=== PATIENT | female | born 1980 | race Caucasian/White ===

== ENCOUNTER 2018-09-13 15:34 | Outpatient (CLI) | payer MEDICAID | END 2018-09-13 15:35 | disposition critical access hospital (66) | LOC: EMS 15:34 | PROVIDERS: ATTEND Surgery | DX: T50.992A Poisoning by other drugs, medicaments and biological substances, intentional self-harm, initial encounter (principal) | CPT/HCPCS: A0425; A0427; A0999 ==

== ENCOUNTER 2018-09-13 15:54 | Inpatient (IN) | payer MEDICAID ==
[2018-09-13] MEDS ORDERED: SODIUM CHLORIDE 0.9% 1,000 ML IV ONE ×2 (16:03→16:38)
[2018-09-13] MEDS ORDERED: NALOXONE 2 MG in SODIUM CHLORIDE 0.9% 495 ML IVP STA (16:14)
--- NOTE | 2018-09-13 16:16 | ED Physician Documentation ---
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 Review of Systems Ten Systems: 10 systems reviewed and negative Constitutional: denies: Fever, Chills Ears: denies: Ear pain Nose: denies: Rhinorrhea / runny nose, Congestion Throat: denies: Sore throat Cardiac: denies: Chest pain / pressure Respiratory: denies: Cough GI: denies: Vomiting, Diarrhea Skin: denies: Rash Musculoskeletal: reports: Back pain (chronic). denies: Neck pain Neurologic: denies: Focal weakness, Numbness Psychiatric: reports: Depressed, Suicidal PD PAST MEDICAL HISTORY - Past Medical History Past Medical History: Yes Cardiovascular: High cholesterol Psych: Depression, Anxiety Other Past Medical History: "spinal cord condition" - Present Medications Home Medications: Ambulatory Orders Medication Instructions Recorded Confirmed Atorvastatin [Lipitor] 10 mg 09/13/18 Escitalopram [Lexapro] 10 mg 09/13/18 Gabapentin 300 mg PO 09/13/18 Oxybutynin [Ditropan] 5 09/13/18 QUEtiapine [SEROquel] 50 mg PO QPM 09/13/18 09/13/18 clonazePAM [Clonazepam] 1 09/13/18 - Allergies Allergies/Adverse Reactions: Allergies Allergy/AdvReac Type Severity Reaction Status Date / Time No Known Drug Allergies Allergy Verified 09/13/18 16:01 - Living Situation Living Arrangement: reports: At home - Social History Does the pt smoke?: No Does the pt have substance abuse?: No - Family History Family history: reports: Non contributory PD ED PE NORMAL - Vitals Vital signs reviewed: Yes - General General: No acute distress, Well developed/nourished, Other (drowsy, but arousable) - HEENT HEENT: Moist mucous membranes, Other (pinpoint pupils B) - Cardiac Cardiac: RRR, Strong equal pulses - Respiratory Respiratory: No respiratory distress, Clear bilaterally - Abdomen Abdomen: Soft, Non tender - Extremities Extremities: No deformity, No calf tenderness / cord - Neuro Neuro: Other (drowsy) Results - Vitals Vitals: Vital Signs - 24 hr 09/13/18 09/13/18 09/13/18 15:55 16:34 16:53 Temperature 36.9 C Heart Rate 85 73 75 Respiratory 6 L 11 L Rate Blood Pressure 108/74 88/48 L 90/47 L O2 Saturation 94 100 99 09/13/18 17:02 Temperature Heart Rate 70 Respiratory 9 L Rate Blood Pressure 101/65 O2 Saturation 99 Oxygen O2 Source Nasal cannula - EKG (time done) 1610 Rate: Rate (enter#) (79) Rhythm: NSR Bliss: Normal Intervals: Normal GA QRS: Normal Ischemia: Normal ST segments - Labs Labs: Laboratory Tests 09/13/18 09/13/18 09/13/18 16:15 16:15 16:15 WBC 8.0 RBC 4.07 L Hgb 12.0 Hct 37.4 MCV 91.9 MCH 29.4 MCHC 32.0 RDW 14.0 Plt Count 247 MPV 8.0 Neut # (Auto) 5.3 Lymph # (Auto) 2.0 [place] # (Auto) 0.7 Eos # (Auto) 0.0 Baso # (Auto) 0.0 Absolute Nucleated RBC 0.00 Nucleated RBC % 0.0 Sodium 137 Potassium 4.1 Chloride 108 Carbon Dioxide 25 Anion Gap 4.0 L BUN 13 Creatinine 0.7 Estimated GFR (MDRD) 94 Glucose 94 Calcium 7.9 L Total Bilirubin 0.6 AST 16 ALT 12 Alkaline Phosphatase 62 Total Protein 5.9 L Albumin 3.2 Globulin 2.7 Albumin/Globulin Ratio 1.2 Lipase 21 L TSH 2.47 Urine Color Urine Clarity Urine pH Ur Specific [place] Urine Protein Urine Glucose (UA) Urine Ketones Urine Occult Blood Urine Nitrite Urine Bilirubin Urine Urobilinogen Ur Leukocyte Esterase Urine RBC Urine WBC Ur Squamous Epith Cells Urine Bacteria Ur Microscopic Review Urine Culture Comments Urine HCG, Qual Salicylates < 6.0 Urine Opiates Screen Ur Oxycodone Screen Urine Methadone Screen Ur Propoxyphene Screen Acetaminophen 117 H* Ur Barbiturates Screen Ur Tricyclics Screen Ur Phencyclidine Scrn Ur Amphetamine Screen U Methamphetamines Scrn U Benzodiazepines Scrn Urine Cocaine Screen U Cannabinoids Screen Ethyl Alcohol < 5.0 09/13/18 09/13/18 16:24 16:24 WBC RBC Hgb Hct MCV MCH MCHC RDW Plt Count MPV Neut # (Auto) Lymph # (Auto) [place] # (Auto) Eos # (Auto) Baso # (Auto) Absolute Nucleated RBC Nucleated RBC % Sodium Potassium Chloride Carbon Dioxide Anion Gap BUN Creatinine Estimated GFR (MDRD) Glucose Calcium Total Bilirubin AST ALT Alkaline Phosphatase Total Protein Albumin Globulin Albumin/Globulin Ratio Lipase TSH Urine Color DARK YELLOW Urine Clarity CLOUDY Urine pH 7.0 Ur Specific [place] 1.025 Urine Protein 100 H Urine Glucose (UA) NEGATIVE Urine Ketones NEGATIVE Urine Occult Blood TRACE-INTA Urine Nitrite NEGATIVE Urine Bilirubin NEGATIVE Urine Urobilinogen 0.2 (NORMAL) Ur Leukocyte Esterase SMALL H Urine RBC 6-10 H Urine WBC >25 H Ur Squamous Epith Cells RARE Squamous Urine Bacteria Many H Ur Microscopic Review INDICATED Urine Culture Comments INDICATED Urine HCG, Qual NEGATIVE Salicylates Urine Opiates Screen POSITIVE H Ur Oxycodone Screen POSITIVE H Urine Methadone Screen NEGATIVE Ur Propoxyphene Screen NEGATIVE Acetaminophen Ur Barbiturates Screen NEGATIVE Ur Tricyclics Screen POSITIVE H Ur Phencyclidine Scrn NEGATIVE Ur Amphetamine Screen NEGATIVE U Methamphetamines Scrn NEGATIVE U Benzodiazepines Scrn NEGATIVE Urine Cocaine Screen NEGATIVE U Cannabinoids Screen POSITIVE H Ethyl Alcohol PD MEDICAL DECISION MAKING - ED course Complexity details: reviewed results, re-evaluated patient, considered differential, d/w patient, d/w family, d/w retail sales consultant ED course: 37-year-old female status post intentional overdose of oxycodone and Tylenol. Given the unclear time frame of when she actually ingested the pills (patient thinks 5.5hrs PHARMACEUTICAL SALESPERSON, family thinks 2-3), acetylcysteine was empirically given. She was also started on a Narcan drip to maintain her respiratory drive. Discussed the case with poison control who recommended the above. We will admit the patient to the ICU for further care and monitoring. Discussed with Dr. Diaz, hospitalist who accepts. This document was made in part using voice recognition software. While efforts are made to proofread this document, sound alike and grammatical errors may occur. - Critical Care Time(min): 40 Time Includes: Direct patient care, Document care, Coordinate care, See progress note Data interpretation: See progress note Procedures included in critical care time: See progress note Procedures excluded from critical care time: See progress note Departure - Departure Disposition: 66 [facility] DC/Xfer Clinical Impression: Suicide attempt Acetaminophen overdose Qualifiers: Encounter type: initial encounter Injury intent: intentional self-harm Qualified Code(s): T39.1X2A - Poisoning by 4-Aminophenol derivatives, intentional self-harm, initial encounter Narcotic overdose Qualifiers: Encounter type: initial encounter Injury intent: intentional self-harm Qualified Code(s): T40.602A - Poisoning by unspecified narcotics, intentional self-harm, initial encounter UTI (urinary tract infection) Qualifiers: Urinary tract infection type: acute cystitis Hematuria presence: without hematuria Qualified Code(s): N30.00 - Acute cystitis without hematuria Condition: Stable
[2018-09-13] MEDS ORDERED: ACETYLCYSTEINE IV STA (16:22)
[2018-09-13] MEDS ORDERED: DEXTROSE 5% IV STA (16:22)
[2018-09-13] MEDS ORDERED: ACETYLCYSTEINE 5,000 MG in DEXTROSE 5% 1,000 ML IV ONE (16:23)
[2018-09-13] MEDS ORDERED: ACETYLCYSTEINE IV ONE (16:23)
[2018-09-13] MEDS ORDERED: DEXTROSE 5% IV ONE (16:23)
[2018-09-13 16:26] LABS: BASOPHILS % (AUTO) 0.2 %; EOSINOPHILS % (AUTO) 0.4 %; MEAN CORPUSCULAR HEMOGLOBIN 29.4 pg (27.0-31.0); MEAN CORPUSCULAR VOLUME 91.9 fL (81.0-99.0); MONOCYTES # (AUTO) 0.7 10^3/uL (0.0-1.0); MONOCYTES % (AUTO) 8.2 %; NEUTROPHILS # (AUTO) 5.3 10^3/uL (1.5-6.6); NEUTROPHILS % (AUTO) 66.2 %; PLT - PLATELET COUNT 247 10^3/uL (130-450); RED BLOOD COUNT 4.07 10^6/uL (4.20-5.40)
[2018-09-13 16:32] LABS: MUDS CUTOFF CONCENTRATIONS CUTOFF CONC BELOW:
[2018-09-13 16:34] LABS: BILIRUBIN,URINE NEGATIVE (NEGATIVE); GLUCOSE, URINE (UA) NEGATIVE (NEGATIVE); KETONES,URINE (UA) NEGATIVE (NEGATIVE); LEUKOCYTE ESTERASE, URINE SMALL (NEGATIVE); NITRITE,URINE NEGATIVE (NEGATIVE); OCCULT BLOOD,URINE TRACE-INTA (NEGATIVE); PROTEIN,URINE 100 mg/dL (NEGATIVE); UROBILINOGEN,URINE 0.2 (NORMAL) E.U./dL (NORMAL)
[2018-09-13 16:38] LABS: ALBUMIN 3.2 g/dL (3.2-5.5); ALBUMIN/GLOBULIN RATIO 1.2 (1.0-2.2); ALKALINE PHOSPHATASE 62 IU/L (42-121); ALT ALANINE AMINOTRANSFERASE 12 IU/L (10-60); AST ASPARTATE AMINOTRANSFERASE 16 IU/L (10-42); BILIRUBIN,TOTAL 0.6 mg/dL (0.2-1.0); BUN - BLOOD UREA NITROGEN 13 mg/dL (6-20); CALCIUM 7.9 mg/dL (8.5-10.3); CARBON DIOXIDE - CO2 25 mmol/L (21-32); CHLORIDE 108 mmol/L (101-111); CREATININE 0.7 mg/dL (0.4-1.0); GFR - MDRD 94 (>89); GLUCOSE 94 mg/dL (70-100); LIPASE 21 U/L (22-51); SODIUM 137 mmol/L (135-145); TOTAL PROTEIN 5.9 g/dL (6.7-8.2)
[2018-09-13] MEDS ORDERED: NALOXONE 0.4 MG/ML VIAL IVP STA (16:38)
[2018-09-13 16:47] LABS: CLARITY,URINE CLOUDY (CLEAR); HCG UR QUAL NEGATIVE
[2018-09-13 16:48] LABS: BACTERIA,URINE Many /HPF (None Seen); SQUAMOUS EPITHELIAL CELL,UR RARE Squamous (<= Few)
[2018-09-13 16:49] LABS: AMPHETAMINE SCREEN,URINE NEGATIVE (NEGATIVE); BENZODIAZEPINES SCREEN, URINE NEGATIVE (NEGATIVE); COCAINE SCREEN URINE NEGATIVE (NEGATIVE); METHADONE SCREEN, URINE NEGATIVE (NEGATIVE); METHAMPHETAMINES SCREEN, URINE NEGATIVE (NEGATIVE); OPIATE SCREEN, URINE POSITIVE (NEGATIVE); OXYCODONE SCREEN, URINE POSITIVE (NEGATIVE); PROPOXYPHENE SCREEN, URINE NEGATIVE (NEGATIVE); TRICYCLIC ANTIDEPRESSANT,URINE POSITIVE (NEGATIVE)
[2018-09-13 16:49] LABS: ACETAMINOPHEN 117 ug/mL (10-30)
[2018-09-13] MEDS ORDERED: cefTRIAXone 1 GM VIAL IVP STA (16:49)
[2018-09-13 16:50] LABS: SALICYLATE < 6.0 mg/dL
[2018-09-13] MEDS ORDERED: NALOXONE 0.4 MG/ML VIAL ONE (18:44)
[2018-09-13] MEDS ORDERED: D5NS W/20 MEQ KCL 1,000 ML IV STA (18:44)
[2018-09-13] MEDS ORDERED: SODIUM CHLORIDE 0.9% 500 ML IV ONE ×3 (18:45→23:52)
[2018-09-13] MEDS ORDERED: ACETYLCYSTEINE IV SCH (19:00)
[2018-09-13] MEDS ORDERED: DEXTROSE 5% IV SCH (19:00)
[2018-09-13] MEDS: NALOXONE 2 MG in SODIUM CHLORIDE 0.9% 495 ML IVP SCH ×2 (19:00→23:55)
[2018-09-13] MEDS: ceFAZolin 1 GM in SODIUM CHLORIDE 0.9% MINIBAG 100 ML IV SCH (19:58)
--- NOTE | 2018-09-13 20:43 | HISTORY & PHYSICAL EXAMINATION ---
DATE OF SERVICE: 09/13/2018 Physician: Josephine Diaz MD HISTORY OF PRESENT ILLNESS: This is a 37-year-old white female with history of depression on several psychiatric medications, she moved here from [place] was two teenage children in May of this year to be closer to HER OWN brother and sister, since she is . She recently had a brake up with her fiancee and has been crying and this morning attempted suicide with admitted ingestion of 70 tablets of Percocet and Tylenol. She noted that she "could not move" and called for help and was brought to the emergency room in an obtunded condition. She was started on a Narcan drip and Poison Control was called. Apparently, the ingestion was about 4 hours before this presentation and she did not receive any charcoal. Poison Control also advised that she be put on the Narcan drip as well as an Acetylcysteine drip, even before the Acetominophen level was available. She is now lethargic, but is communicating with somewhat slurred speech and also unable to focus with her eyes, but is comfortable and in no distress on the two iv drips. PAST MEDICAL HISTORY: Depression. She has never had a suicide attempt before. SOCIAL HISTORY: No alcohol use, no smoking, (+) drug use. MEDICATIONS 1. Seroquel 50 mg every night. 2. Klonopin, unknown dose. 3. Ditropan, unknown dose. 4. Gabapentin 300 mg, unknown frequency. 5. Lexapro 10 mg daily. 6. Lipitor 10 mg daily. ALLERGIES: NONE. FAMILY HISTORY: No inherited diseases. REVIEW OF SYSTEMS: A comprehensive review of systems was performed and the pertinent positives are in the HPI, the rest are negative. PHYSICAL EXAMINATION GENERAL: Somewhat lethargic white female who is in no distress. VITAL SIGNS: Blood pressure 90/56, heart rate 65-80 in sinus rhythm, afebrile, room air saturation 98%. HEENT: Reveals unequal pupils, but both are reactive to light. She is unable to focus equally with extraocular movements. Her oral mucosa is dry. NECK: Without JVD. No carotid bruits. LUNGS: Clear. HEART: Sounds normal. ABDOMEN: Soft, nontender. Normal bowel sounds, nontender. EXTREMITIES: No edema. NEUROLOGIC: As described above. DATA: EKG: Normal sinus rhythm, early repolarization, which is a normal variant. No chest x-ray was done. LABORATORY DATA: Normal electrolytes. Normal BUN and creatinine. Normal liver tests and bilirubin and alkaline phosphatase. Normal lipase. TSH normal at 2.47. White blood count 8, hemoglobin 12, MCV normal, platelet count 246. Urinalysis showed high protein, small leukocyte esterase, many white blood cells and many bacteria. Urine toxicology showed acetaminophen level of 117 (therapeutic here is 10-30) also positive in the urine are opiates, oxycodone, tricyclics and cannabinoid. There is no alcohol or salicylates noted. IMPRESSION/DIAGNOSES 1. Suicide attempt with drug ingestion. 2. Acetaminophen overdose. 3. Narcotic overdose. 4. Urinary tract infection. 5. History of depression. PLAN: Admit the patient to the ICU on telemetry. Continue with the Narcan drip as per protocol and continue with Acetylcysteine drip per protocol. Follow her acetominophen level, electrolytes and liver tests daily. She may have a diet of clear liquids and as she becomes more awake the diet will be advanced. Treat the UTI with IV Ancef and await urine cultures. If there is a fever, then obtain blood cultures. When she is medically clear, a mental health evaluation will be requested from social workers and potential transfer to an inpatient treatment center. CODE STATUS: FULL CODE. DEEP VENOUS THROMBOSIS PROPHYLAXIS: SCDs. ATTESTATION: The patient is expected to be discharged or transferred to another facility within 96 hours: Yes. cc: Cristi Pineda MD TD: 09/13/2018 20:20 MTDD
[2018-09-13] MEDS: PANTOPRAZOLE 40 MG VIAL IVP SCH (21:09)
[2018-09-14] MEDS ORDERED: SODIUM CHLORIDE 0.9% 500 ML IV ONE ×2 (02:33→04:54)
[2018-09-14] MEDS: ceFAZolin 1 GM in SODIUM CHLORIDE 0.9% MINIBAG 100 ML IV SCH ×3 (04:36→18:37)
[2018-09-14 05:20] LABS: BASOPHILS % (AUTO) 0.3 %; EOSINOPHILS % (AUTO) 0.8 %; HGB - HEMOGLOBIN 10.3 g/dL (12.0-16.0); LYMPHOCYTES # (AUTO) 2.3 10^3/uL (1.5-3.5); LYMPHOCYTES % (AUTO) 40.7 %; MEAN CORPUSCULAR HEMOGLOBIN 30.2 pg (27.0-31.0); MEAN CORPUSCULAR HGB CONC 32.7 g/dL (32.0-36.0); MEAN CORPUSCULAR VOLUME 92.2 fL (81.0-99.0); MEAN PLATELET VOLUME 8.1 fL (7.9-10.8); MONOCYTES # (AUTO) 0.5 10^3/uL (0.0-1.0); NEUTROPHILS # (AUTO) 2.7 10^3/uL (1.5-6.6); NEUTROPHILS % (AUTO) 49.2 %; PLT - PLATELET COUNT 167 10^3/uL (130-450); RED BLOOD COUNT 3.43 10^6/uL (4.20-5.40); RED CELL DISTRIBUTION WIDTH 14.2 % (12.0-15.0); WHITE BLOOD COUNT 5.6 x10^3/uL (4.8-10.8)
[2018-09-14 05:24] LABS: INR 1.4 (0.8-1.2); PT - PROTHROMBIN TIME 15.9 secs (9.9-12.6)
[2018-09-14] MEDS: NALOXONE 2 MG in SODIUM CHLORIDE 0.9% 495 ML IVP SCH (05:30)
[2018-09-14 05:37] LABS: ALBUMIN 2.2 g/dL (3.2-5.5); ALBUMIN/GLOBULIN RATIO 1.2 (1.0-2.2); BILIRUBIN,TOTAL 0.6 mg/dL (0.2-1.0); CALCIUM 6.9 mg/dL (8.5-10.3); CREATININE 0.7 mg/dL (0.4-1.0); MAGNESIUM 1.7 mg/dL (1.7-2.8); PHOSPHORUS 1.8 mg/dL (2.5-4.6); TOTAL PROTEIN 4.1 g/dL (6.7-8.2)
[2018-09-14] MEDS ORDERED: NEUTRA-PHOS 250 MG TABLET PO SCH (06:00)
[2018-09-14 06:39] LABS: CALCIUM 6.8 mg/dL (8.5-10.3)
[2018-09-14] MEDS: PROCHLORPERAZINE 10 MG/2 ML VIAL IVP PRN ×2 (06:40→17:18)
[2018-09-14 06:43] LABS: VBG PH 7.353 (7.31-7.41)
[2018-09-14] MEDS ORDERED: POTASSIUM PHOSPHATE 21 MMOL in SODIUM CHLORIDE 0.9% 250 ML IV ONE (07:02)
[2018-09-14] MEDS ORDERED: CALCIUM GLUCONATE 1,000 MG in SODIUM CHLORIDE 0.9% 50 ML IV ONE (08:01)
[2018-09-14] MEDS ORDERED: NALOXONE 2 MG in SODIUM CHLORIDE 0.9% 495 ML IVP SCH (08:44)
[2018-09-14] MEDS ORDERED: ceFAZolin 1 GM in SODIUM CHLORIDE 0.9% MINIBAG 100 ML IV SCH (09:00)
[2018-09-14] MEDS: MAGNESIUM OXIDE 400 MG TABLET PO SCH ×2 (09:15→16:01)
[2018-09-14] MEDS: NEUTRA-PHOS 250 MG TABLET PO SCH ×2 (09:16→11:11)
[2018-09-14] MEDS: PANTOPRAZOLE 40 MG VIAL IVP SCH ×2 (09:16→21:11)
[2018-09-14] MEDS: SODIUM CHLORIDE FLUSH 0.9% 10 ML SYRINGE IVP SCH ×3 (09:17→16:04)
[2018-09-14] MEDS: NALOXONE 2 MG in SODIUM CHLORIDE 0.9% 495 ML IV SCH ×2 (11:07→15:58)
[2018-09-14 15:00] LABS: INR 1.3 (0.8-1.2); PT - PROTHROMBIN TIME 14.9 secs (9.9-12.6)
--- NOTE | 2018-09-14 15:55 | PROVIDER PROGRESS NOTE ---
Assessment/Plan - Problem List (1) Acetaminophen overdose Qualifiers: Encounter type: initial encounter Injury intent: intentional self-harm Qualified Code(s): T39.1X2A - Poisoning by 4-Aminophenol derivatives, intentional self-harm, initial encounter Assessment/Plan: Managing N-acetylcysteine, based on Acetominophen level, ALT and INR. The acetominophen level went up, suggesting delayed absorption, possibly from her Oxybutinin (anticholinergic). Poison Control and I spoke twice this afternoon: her Acetylcysteine will be stopped when the Acetominophen level is <10 and she has normal ALT and INR <2. (2) Narcotic overdose Qualifiers: Encounter type: initial encounter Injury intent: intentional self-harm Qualified Code(s): T40.602A - Poisoning by unspecified narcotics, intentional self-harm, initial encounter Assessment/Plan: Continue Narcan. (3) Suicide attempt Assessment/Plan: The [id number] informed me that she has had 2 other suicide attempts in [place]. The patient is never home alone because the daughter is home schooled. The patient's brother, usually dispenses her meds. The (+) Tricyclics in the tox screen may be from her Quietepan intake. She will need a mental health eval by Social Work when medically stable. (4) UTI (urinary tract infection) Qualifiers: Urinary tract infection type: acute cystitis Hematuria presence: without hematuria Qualified Code(s): N30.00 - Acute cystitis without hematuria Assessment/Plan: Continue iv antibiotic. Add Pyridium for dysuria. Will also restart her itropan and Oxybutinin. (5) Neuropathy Assessment/Plan: The [id number] informed of this Dx. She is on meds for this. (6) Hx of Parkinson's disease Assessment/Plan: The [id number] informed me of this diagnosis and that the patient is on disability for this. (7) Peripheral edema Assessment/Plan: iv saline stopped. Will let third spaced fluids mobilize, if not tghen will dose Lasix. - Current Meds Current Meds: Current Medications Generic Name Dose Route Start Last Admin Trade Name Freq PRN Reason Stop Dose Admin Cefazolin Sodium 1 gm/ Sodium 100 mls @ 200 mls/hr 09/13/18 19:00 09/14/18 12:00 Chloride IV Infused Q8H CHALO Infusion Naloxone HCl 2 mg/ Sodium 500 mls @ 250 mls/hr 09/14/18 11:03 09/14/18 13:48 Chloride IV Infused .Q2H CHALO Titration Protocol 1 MG/HR Pantoprazole Sodium 40 mg 09/13/18 21:00 09/14/18 09:16 Protonix IVP 40 mg BID CHALO Administration Prochlorperazine Edisylate 10 mg 09/13/18 17:11 09/14/18 06:40 Compazine Inj IVP 10 mg Q6HR PRN Administration Nausea / Vomiting Sodium Chloride 10 ml 09/14/18 01:00 09/14/18 09:17 Normal Saline Flush 0.9% IVP 20 ml 0100,0900,1700 CHALO Administration - Lab Result Fish Bone Diagrams: 09/14/18 04:56 09/14/18 04:56 - Additional Planning My Orders: My Active Orders 09/13/18 17:11 Initiate Line Care Protocol [RC] .protocol Prochlorperazine Inj [Compazine Inj] 10 mg IVP Q6HR PRN Sodium Chloride Flush 0.9% [Normal Saline Flush 0.9%] 10 ml IVP PRN PRN 09/13/18 17:12 Activity Orders [RC] Routine Daily Weight [RC] 0600 IO [RC] Q1HR Initiate Bowel Care Protocol [RC] QSHIFT Initiate ICU Electrolyte Prot. [RC] .protocol Initiate Line Care Protocol [RC] .protocol Initiate Personal Care Protoco [RC] .protocol Vital Signs [RC] Q1HR Code Status [OTHERS] Routine Condition of Patient [OTHERS] Routine DVT Prophylaxis [OTHERS] Routine 09/13/18 17:13 1:1 Observation [RC] Routine 09/13/18 17:14 Blood Glucose POC [RC] Routine Oral Care - Nursing [RC] Routine Telemetry- [RC] Routine Turn and Reposition [RC] Routine Turn, Cough and Deep Breathe [RC] Routine 09/13/18 17:15 Oxygen Therapy [RC] .PRN SCDs [RC] QSHIFT 09/13/18 19:00 ceFAZolin [Ancef] 1 gm Sodium Chloride 0.9% Minibag [Normal Saline 0.9% Minibag] 100 ml IV Q8H 09/13/18 21:00 Pantoprazole [Protonix] 40 mg IVP BID 09/13/18 Dinner Clear Liquid Diet [DIET] 09/14/18 01:00 Sodium Chloride Flush 0.9% [Normal Saline Flush 0.9%] 10 ml IVP 0100,0900,1700 09/14/18 12:49 Pure Wick [Female External Catheter Care] [RC] QSHIFT 09/15/18 05:00 CALCIUM, RFLX TO IONIZED CA IF [CHEM] DAILYLAB CBC - COMP BLD CT W/AUTO DIFF [HEME] DAILYLAB COMPREHENSIVE METABOLIC PANEL [CHEM] DAILYLAB MAGNESIUM [CHEM] DAILYLAB PHOSPHORUS [CHEM] DAILYLAB PT WITH INR [COAG] DAILYLAB 09/16/18 05:00 CALCIUM, RFLX TO IONIZED CA IF [CHEM] DAILYLAB CBC - COMP BLD CT W/AUTO DIFF [HEME] DAILYLAB COMPREHENSIVE METABOLIC PANEL [CHEM] DAILYLAB MAGNESIUM [CHEM] DAILYLAB PHOSPHORUS [CHEM] DAILYLAB PT WITH INR [COAG] DAILYLAB 09/17/18 05:00 CALCIUM, RFLX TO IONIZED CA IF [CHEM] DAILYLAB CBC - COMP BLD CT W/AUTO DIFF [HEME] DAILYLAB COMPREHENSIVE METABOLIC PANEL [CHEM] DAILYLAB MAGNESIUM [CHEM] DAILYLAB PHOSPHORUS [CHEM] DAILYLAB PT WITH INR [COAG] DAILYLAB 09/18/18 05:00 CBC - COMP BLD CT W/AUTO DIFF [HEME] DAILYLAB COMPREHENSIVE METABOLIC PANEL [CHEM] DAILYLAB PT WITH INR [COAG] DAILYLAB Subjective - Subjective Patient Reports: Other (Lethargic and asking for meds for neuropathy pain) Nursing Reports: Other (c/o dysuria and frequency) Objective Vital Signs: Vital Signs - 24 hr 09/13/18 09/13/18 09/13/18 15:55 16:34 16:53 Temperature 36.9 C Heart Rate 85 73 75 Heart Rate [ Monitoring electrodes] Respiratory 6 L 11 L Rate Blood Pressure 108/74 88/48 L 90/47 L Blood Pressure [Left Brachial artery] O2 Saturation 94 100 99 09/13/18 09/13/18 09/13/18 17:02 17:18 17:28 Temperature Heart Rate 70 71 66 Heart Rate [ Monitoring electrodes] Respiratory 9 L 9 L 6 L Rate Blood Pressure 101/65 89/56 L 89/55 L Blood Pressure [Left Brachial artery] O2 Saturation 99 98 09/13/18 09/13/18 09/13/18 18:15 19:00 20:00 Temperature 37.1 C 36.8 C Heart Rate Heart Rate [ 75 79 77 Monitoring electrodes] Respiratory 14 10 L 14 Rate Blood Pressure Blood Pressure 106/71 88/49 L 91/54 L [Left Brachial artery] O2 Saturation 100 98 98 09/13/18 09/13/18 09/13/18 21:00 22:00 23:00 Temperature 37.2 C 37.3 C 37.1 C Heart Rate Heart Rate [ 68 77 64 Monitoring electrodes] Respiratory 12 12 12 Rate Blood Pressure Blood Pressure 97/62 91/48 L 82/54 L [Left Brachial artery] O2 Saturation 100 93 96 09/14/18 09/14/18 09/14/18 00:00 01:00 02:01 Temperature 37.1 C 36.5 C 36.9 C Heart Rate Heart Rate [ 65 67 59 L Monitoring electrodes] Respiratory 17 11 L 11 L Rate Blood Pressure Blood Pressure 88/52 L 85/50 L 81/50 L [Left Brachial artery] O2 Saturation 93 94 94 09/14/18 09/14/18 09/14/18 02:19 03:00 04:00 Temperature 36.7 C 36.5 C Heart Rate Heart Rate [ 75 64 62 Monitoring electrodes] Respiratory 15 11 L 13 Rate Blood Pressure Blood Pressure 91/56 L 85/50 L 86/47 L [Left Brachial artery] O2 Saturation 96 95 95 09/14/18 09/14/18 09/14/18 04:46 05:00 06:00 Temperature 37.0 C 36.9 C Heart Rate Heart Rate [ 66 72 87 Monitoring electrodes] Respiratory 12 15 14 Rate Blood Pressure Blood Pressure 94/57 L 101/70 110/76 [Left Brachial artery] O2 Saturation 93 93 95 09/14/18 09/14/18 09/14/18 06:58 08:00 09:00 Temperature 37.0 C 36.8 C 36.9 C Heart Rate Heart Rate [ 74 80 74 Monitoring electrodes] Respiratory 17 14 16 Rate Blood Pressure Blood Pressure 188/84 H 106/67 109/65 [Left Brachial artery] O2 Saturation 94 95 09/14/18 09/14/18 09/14/18 10:00 11:00 12:00 Temperature 36.9 C 36.9 C 36.9 C Heart Rate Heart Rate [ 87 81 85 Monitoring electrodes] Respiratory 24 17 19 Rate Blood Pressure Blood Pressure 123/75 121/81 H 135/91 H [Left Brachial artery] O2 Saturation 95 97 96 09/14/18 09/14/18 09/14/18 13:00 14:00 15:00 Temperature 37.1 C 36.9 C 37.0 C Heart Rate Heart Rate [ 96 99 106 H Monitoring electrodes] Respiratory 21 21 29 H Rate Blood Pressure Blood Pressure 137/88 H 150/99 H 136/121 H [Left Brachial artery] O2 Saturation 96 99 96 Oxygen O2 Source Room air I&O (Last 24 Hrs): Intake and Output Totals x24h 09/12/18 09/13/18 09/14/18 23:59 23:59 23:59 Intake Total 2435.000 4190 Output Total 902 3271 Balance 1533.000 919 General: Other (Lethargic, but answers appropriarely) HEENT: Mucous membr. moist/pink Neck: Supple, No JVD Neuro: Non Focal, Speech Slurred Cardiovascular: Regular rate, No murmurs Respiratory: No respiratory distress, Breath sounds nml Abdomen: Soft Extremities: Other (1+ pedal and hand edema) - Results Results: Laboratory Results WBC 5.6 x10^3/uL (4.8-10.8) 09/14/18 04:56 RBC 3.43 10^6/uL (4.20-5.40) L 09/14/18 04:56 Hgb 10.3 g/dL (12.0-16.0) L 09/14/18 04:56 Hct 31.6 % (37.0-47.0) L 09/14/18 04:56 MCV 92.2 fL (81.0-99.0) 09/14/18 04:56 MCH 30.2 pg (27.0-31.0) 09/14/18 04:56 MCHC 32.7 g/dL (32.0-36.0) 09/14/18 04:56 RDW 14.2 % (12.0-15.0) 09/14/18 04:56 Plt Count 167 10^3/uL (130-450) 09/14/18 04:56 MPV 8.1 fL (7.9-10.8) 09/14/18 04:56 Neut # (Auto) 2.7 10^3/uL (1.5-6.6) 09/14/18 04:56 Lymph # (Auto) 2.3 10^3/uL (1.5-3.5) 09/14/18 04:56 [place] # (Auto) 0.5 10^3/uL (0.0-1.0) 09/14/18 04:56 Eos # (Auto) 0.0 10^3/uL (0.0-0.7) 09/14/18 04:56 Baso # (Auto) 0.0 10^3/uL (0.0-0.1) 09/14/18 04:56 Absolute Nucleated RBC 0.00 x10^3/uL 09/14/18 04:56 Nucleated RBC % 0.1 /100WBC 09/14/18 04:56 PT 14.9 secs (9.9-12.6) H 09/14/18 14:40 INR 1.3 (0.8-1.2) H 09/14/18 14:40 VBG pH 7.353 (7.31-7.41) 09/14/18 06:33 Ionized Calcium 1.06 mmol/L (1.15-1.33) L 09/14/18 06:33 Sodium 137 mmol/L (135-145) 09/14/18 04:56 Potassium 3.7 mmol/L (3.5-5.0) 09/14/18 04:56 Chloride 114 mmol/L (101-111) H 09/14/18 04:56 Carbon Dioxide 19 mmol/L (21-32) L 09/14/18 04:56 Anion Gap 4.0 (6-13) L 09/14/18 04:56 BUN 5 mg/dL (6-20) L 09/14/18 04:56 Creatinine 0.7 mg/dL (0.4-1.0) 09/14/18 04:56 Estimated GFR (MDRD) 94 (>89) 09/14/18 04:56 Glucose 141 mg/dL (70-100) H 09/14/18 04:56 Calcium 6.8 mg/dL (8.5-10.3) L 09/14/18 06:33 Ionized Calcium YES 09/14/18 06:33 Phosphorus 1.8 mg/dL (2.5-4.6) L 09/14/18 04:56 Magnesium 1.7 mg/dL (1.7-2.8) 09/14/18 04:56 Total Bilirubin 0.6 mg/dL (0.2-1.0) 09/14/18 04:56 AST 13 IU/L (10-42) 09/14/18 04:56 ALT 11 IU/L (10-60) 09/14/18 14:40 Alkaline Phosphatase 42 IU/L (42-121) 09/14/18 04:56 Total Protein 4.1 g/dL (6.7-8.2) L 09/14/18 04:56 Albumin 2.2 g/dL (3.2-5.5) L 09/14/18 04:56 Globulin 1.9 g/dL (2.1-4.2) L 09/14/18 04:56 Albumin/Globulin Ratio 1.2 (1.0-2.2) 09/14/18 04:56 Lipase 21 U/L (22-51) L 09/13/18 16:15 TSH 2.47 uIU/mL (0.34-5.60) 09/13/18 16:15 Urine Color DARK YELLOW 09/13/18 16:24 Urine Clarity CLOUDY (CLEAR) 09/13/18 16:24 Urine pH 7.0 PH (5.0-7.5) 09/13/18 16:24 Ur Specific [place] 1.025 (1.002-1.030) 09/13/18 16:24 Urine Protein 100 mg/dL (NEGATIVE) H 09/13/18 16:24 Urine Glucose (UA) NEGATIVE mg/dL (NEGATIVE) 09/13/18 16:24 Urine Ketones NEGATIVE mg/dL (NEGATIVE) 09/13/18 16:24 Urine Occult Blood TRACE-INTA (NEGATIVE) 09/13/18 16:24 Urine Nitrite NEGATIVE (NEGATIVE) 09/13/18 16:24 Urine Bilirubin NEGATIVE (NEGATIVE) 09/13/18 16:24 Urine Urobilinogen 0.2 (NORMAL) E.U./dL (NORMAL) 09/13/18 16:24 Ur Leukocyte Esterase SMALL (NEGATIVE) H 09/13/18 16:24 Urine RBC 6-10 /HPF (0-5) H 09/13/18 16:24 Urine WBC >25 /HPF (0-5) H 09/13/18 16:24 Ur Squamous Epith Cells RARE Squamous (<= Few) 09/13/18 16:24 Urine Bacteria Many /HPF (None Seen) H 09/13/18 16:24 Ur Microscopic Review INDICATED 09/13/18 16:24 Urine Culture Comments INDICATED 09/13/18 16:24 Urine HCG, Qual NEGATIVE 09/13/18 16:24 Salicylates < 6.0 mg/dL 09/13/18 16:15 Urine Opiates Screen POSITIVE (NEGATIVE) H 09/13/18 16:24 Ur Oxycodone Screen POSITIVE (NEGATIVE) H 09/13/18 16:24 Urine Methadone Screen NEGATIVE (NEGATIVE) 09/13/18 16:24 Ur Propoxyphene Screen NEGATIVE (NEGATIVE) 09/13/18 16:24 Acetaminophen 22 ug/mL (10-30) 09/14/18 14:40 Ur Barbiturates Screen NEGATIVE (NEGATIVE) 09/13/18 16:24 Ur Tricyclics Screen POSITIVE (NEGATIVE) H 09/13/18 16:24 Ur Phencyclidine Scrn NEGATIVE (NEGATIVE) 09/13/18 16:24 Ur Amphetamine Screen NEGATIVE (NEGATIVE) 09/13/18 16:24 U Methamphetamines Scrn NEGATIVE (NEGATIVE) 09/13/18 16:24 U Benzodiazepines Scrn NEGATIVE (NEGATIVE) 09/13/18 16:24 Urine Cocaine Screen NEGATIVE (NEGATIVE) 09/13/18 16:24 U Cannabinoids Screen POSITIVE (NEGATIVE) H 09/13/18 16:24 Ethyl Alcohol < 5.0 mg/dL 09/13/18 16:15
[2018-09-14] MEDS: PHENAZOPYRIDINE 100 MG TABLET PO SCH ×3 (17:11→21:30)
[2018-09-14 17:16] LABS: BILIRUBIN,URINE NEGATIVE (NEGATIVE); GLUCOSE, URINE (UA) NEGATIVE (NEGATIVE); KETONES,URINE (UA) NEGATIVE (NEGATIVE); LEUKOCYTE ESTERASE, URINE MODERATE (NEGATIVE); NITRITE,URINE NEGATIVE (NEGATIVE); OCCULT BLOOD,URINE LARGE (NEGATIVE); PROTEIN,URINE 30 mg/dL (NEGATIVE); UROBILINOGEN,URINE 0.2 (NORMAL) E.U./dL (NORMAL)
[2018-09-14 17:27] LABS: BACTERIA,URINE Rare /HPF (None Seen); CLARITY,URINE SL. CLOUDY (CLEAR); SQUAMOUS EPITHELIAL CELL,UR FEW Squamous (<= Few)
[2018-09-14] MEDS ORDERED: DEXTROSE 5% IV ONE (17:30)
[2018-09-14] MEDS ORDERED: ACETYLCYSTEINE IV ONE (17:30)
[2018-09-14] MEDS ORDERED: MIN OIL/DIMETHICON/COCONUT OIL 92 GM TUBE TOP PRN (18:18)
[2018-09-14] MEDS: NALOXONE IV SCH (18:40)
[2018-09-14] MEDS: SODIUM CHLORIDE 0.9% IV SCH (18:40)
--- NOTE | 2018-09-14 19:42 | ADVANCE CARE PLANNING NOTE ---
Advance Care Planning - Date/Time Date: 09/14/18 Time: 15:20 - Purpose of encounter Text: To fill in details about the patient's history and goals/wishes, since she was lethargic and gave short answers at admission. She has also never been hospitalized here before, therefore we have no details about her past medical history or functioning. - Parties in attendance Parties in attendance: I spoke to the patient's [id number], with whom she lives. - Decisional capacity Decisional capacity of: The patient is still lethargic from her narcotic overdose, is on a Narcan drip, but is not fully awake and alert, gives only short answers. - Subjective/Patient's story Subjective/Patient's story: The patient moved here from [place] after her divorce, she has 2 grown children that remained in [place] and she has a 15-year-old son and 14-year-old daughter that moved to [facility] with her. She moved here to live with her brother and kmkodx-fq-oqo. They all have a good relationship. They help her since, she has a disability from Parkinson's and neuropathy. The ooqfuf-et-kiw says there were 2 suicide attempts in [place]. The brother dispenses the patient her medications "from a tube", they are for neuropathy, pain control and depression. After her last appointment to a provider, she took a cab from the doctor's off ice to the pharmacy to fill her own prescriptions and they were in her own possession, instead of being with the brother who dispenses them. The patient had a prescription for 90 tablets of Tylenol with codeine. And the yiqjbn-lf-uco reports that she had used about 18 of them therefore possibly 70-75 were left. The patient took this overdose with both of her children in the house. Normally the patient is never left alone, the daughter is always at home when the son is in school and the brother and dmyteg-tb-amr are at work, because the daughter is "home schooled". The patient has been in a relationship with a "boyfriend" who she only skypes with and has only met once in person. Apparently, they had a bad argument on skype, the boyfriend stated that he wished that she was . The patient was very upset with this and apparently this is the reason for the suicide attempt. - Objective/Medical story Objective/Medical Story: She was brought in obtunded, received Narcan in the ambulance and was started on a Narcan drip in the ER. Because she was partly communicative and could describe that she had taken Tylenol as part of her suicide attempt, she was put on N-acetylcysteine even before the acetaminophen serum level was available. The ingestion was approximately 4-5 hours before presentation in the ER. The level was elevated at 117, and she had normal liver tests and normal INR were found. Poison control has been helping with this case, advising the titration and duration of her Narcan and N-acetylcysteine treatment.Patient has only awoken enough to speak forward sentences, is mostly sleeping, the Narcan drip has not yet been attempted to be weaned to off. The ER notes indicate that the patient communicated with ER staff stating that the only reason she would stay alive is to be available for her children. - Goals of Care Goals of care determinations: The [id number]-mq-uux requests that the patient have aggressive psychiatric care. I indicated that a mental health evaluation will be done by Social Work when she is medically stabilized. - Plan Plan: Aggressive management for acetaminophen overdose, narcotic overdose, resumption of her neuropathy meds, mental health evaluation and possible transfer to an inpatient psychiatric center. She has a Full Code status. - Code Status Code Status: Attempt Resuscitation - Time Spent on Advance Care Planning Time spent on advance care plannin
[2018-09-14] MEDS: GABAPENTIN 300 MG CAPSULE PO SCH ×2 (21:11→21:30)
[2018-09-14] MEDS: OXYBUTYNIN 5MG TABLET PO SCH ×2 (21:11→21:30)
[2018-09-15] MEDS: NALOXONE IV SCH ×3 (00:23→07:02)
[2018-09-15] MEDS: SODIUM CHLORIDE 0.9% IV SCH ×3 (00:23→07:02)
[2018-09-15] MEDS: SODIUM CHLORIDE FLUSH 0.9% 10 ML SYRINGE IVP SCH ×4 (00:28→20:17)
[2018-09-15] MEDS: ceFAZolin 1 GM in SODIUM CHLORIDE 0.9% MINIBAG 100 ML IV SCH ×2 (02:37→11:10)
[2018-09-15 05:12] LABS: BASOPHILS % (AUTO) 0.4 %; EOSINOPHILS # (AUTO) 0.1 10^3/uL (0.0-0.7); EOSINOPHILS % (AUTO) 0.8 %; HGB - HEMOGLOBIN 10.4 g/dL (12.0-16.0); LYMPHOCYTES # (AUTO) 2.4 10^3/uL (1.5-3.5); LYMPHOCYTES % (AUTO) 29.4 %; MEAN CORPUSCULAR HEMOGLOBIN 29.7 pg (27.0-31.0); MEAN CORPUSCULAR HGB CONC 32.8 g/dL (32.0-36.0); MEAN CORPUSCULAR VOLUME 90.6 fL (81.0-99.0); MONOCYTES # (AUTO) 0.6 10^3/uL (0.0-1.0); MONOCYTES % (AUTO) 7.5 %; NEUTROPHILS # (AUTO) 5.1 10^3/uL (1.5-6.6); NEUTROPHILS % (AUTO) 61.9 %; PLT - PLATELET COUNT 200 10^3/uL (130-450); RED BLOOD COUNT 3.48 10^6/uL (4.20-5.40); RED CELL DISTRIBUTION WIDTH 13.9 % (12.0-15.0); WHITE BLOOD COUNT 8.3 x10^3/uL (4.8-10.8)
[2018-09-15 05:15] LABS: INR 1.5 (0.8-1.2); PT - PROTHROMBIN TIME 16.8 secs (9.9-12.6)
[2018-09-15 05:26] LABS: ALBUMIN 2.4 g/dL (3.2-5.5); ALBUMIN/GLOBULIN RATIO 1.1 (1.0-2.2); ALKALINE PHOSPHATASE 50 IU/L (42-121); ALT ALANINE AMINOTRANSFERASE 11 IU/L (10-60); AST ASPARTATE AMINOTRANSFERASE 17 IU/L (10-42); BILIRUBIN,TOTAL 0.5 mg/dL (0.2-1.0); BUN - BLOOD UREA NITROGEN < 5 mg/dL (6-20); CALCIUM 7.7 mg/dL (8.5-10.3); CARBON DIOXIDE - CO2 19 mmol/L (21-32); CHLORIDE 114 mmol/L (101-111); CREATININE 0.6 mg/dL (0.4-1.0); GFR - MDRD 112 (>89); GLUCOSE 86 mg/dL (70-100); MAGNESIUM 1.5 mg/dL (1.7-2.8); PHOSPHORUS 1.7 mg/dL (2.5-4.6); SODIUM 138 mmol/L (135-145); TOTAL PROTEIN 4.5 g/dL (6.7-8.2)
[2018-09-15 05:29] LABS: CALCIUM 7.5 mg/dL (8.5-10.3)
[2018-09-15 05:30] LABS: VBG PH 7.388 (7.31-7.41)
[2018-09-15] MEDS ORDERED: CALCIUM GLUCONATE 1,000 MG in SODIUM CHLORIDE 0.9% 50 ML IV ONE (05:36)
[2018-09-15] MEDS ORDERED: POTASSIUM CHLORIDE 20 MEQ TABLET PO ONE (05:36)
[2018-09-15] MEDS: MAGNESIUM OXIDE 400 MG TABLET PO SCH ×2 (06:09→11:21)
[2018-09-15] MEDS: NEUTRA-PHOS 250 MG TABLET PO SCH ×2 (06:09→09:38)
[2018-09-15] MEDS ORDERED: GABAPENTIN 300 MG CAPSULE PO SCH (09:27)
[2018-09-15] MEDS ORDERED: PHENAZOPYRIDINE 100 MG TABLET PO SCH (09:28)
[2018-09-15] MEDS: PANTOPRAZOLE 40 MG VIAL IVP SCH ×2 (09:37→20:16)
[2018-09-15] MEDS: SODIUM CHLORIDE FLUSH 0.9% 10 ML SYRINGE IVP PRN ×3 (09:37→20:17)
[2018-09-15] MEDS ORDERED: OXYBUTYNIN 5MG TABLET PO ONE (11:01)
[2018-09-15] MEDS: GABAPENTIN 300 MG CAPSULE PO SCH ×2 (13:48→21:21)
[2018-09-15] MEDS: PHENAZOPYRIDINE 100 MG TABLET PO SCH ×2 (13:48→21:21)
--- NOTE | 2018-09-15 16:01 | PROVIDER PROGRESS NOTE ---
Subjective - Prog Note Date Prog Note Date: 09/15/18 Prog Note Time: 15:58 - Subjective Pt reports feeling: Improved Subjective: She is sleepy. But starting to get hungry. Denies any chest pain, shortness of breath. Denies any abdominal pain. Has a slight headache. Current Medications - Current Medications Current Medications: Active Medications Gabapentin (Neurontin) 900 mg PO TID [facility] Last Admin: 09/15/18 13:48 Dose: 900 mg Mineral Oil (Cavilon) 1 applic TOP PRN PRN PRN Reason: Skin Care Nitrofurantoin (Macrobid) 100 mg PO BID [facility] Oxybutynin Chloride (Ditropan) 5 mg PO BID [facility] Last Admin: 09/14/18 21:30 Dose: 5 mg Pantoprazole Sodium (Protonix) 40 mg IVP BID [facility] Last Admin: 09/15/18 09:37 Dose: 40 mg Phenazopyridine HCl (Pyridium) 100 mg PO TID [facility] Last Admin: 09/15/18 13:48 Dose: 100 mg Prochlorperazine Edisylate (Compazine Inj) 10 mg IVP Q6HR PRN PRN Reason: Nausea / Vomiting Last Admin: 09/14/18 17:18 Dose: 10 mg Sodium Chloride (Normal Saline Flush 0.9%) 10 ml IVP 0100,0900,1700 [facility] Last Admin: 09/15/18 09:46 Dose: Not Given Sodium Chloride (Normal Saline Flush 0.9%) 10 ml IVP PRN PRN PRN Reason: NEEDED PER PROVIDER ORDERS Last Admin: 09/15/18 12:06 Dose: 10 ml Escitalopram [Lexapro] 10 mg PO DAILY 09/13/18 Oxybutynin [Ditropan] 5 mg PO BID 09/13/18 QUEtiapine [SEROquel] 50 mg PO QPM 09/13/18 clonazePAM [Clonazepam] 1 mg PO TID 09/13/18 Atorvastatin Calcium 40 mg PO BID 09/14/18 Gabapentin 900 mg PO TID 09/14/18 Lisinopril 10 mg PO DAILY 09/14/18 Marijuana 1 ea PO PRN PRN 09/14/18 Naloxone HCl [Narcan] 1 spr JUAQUIN PRN PRN 09/14/18 Nitrofurantoin Macrocrystal [Nitrofurantoin] 100 mg PO BID 09/14/18 Oxycodone HCl/Acetaminophen [Oxycodon-Acetaminophen 7.5-325] 1 tab PO TID PRN 09/14/18 Objective - Vital Signs/Intake & Output Reviewed Vital Signs: Yes Vital Signs: Vital Signs x48h Temp Pulse Resp BP BP Pulse Ox 09/15/18 15:00 74 17 127/80 96 09/15/18 14:00 37.1 C 75 19 135/87 H 97 09/15/18 13:00 36.6 C 85 18 117/87 H 98 09/15/18 12:00 36.8 C 96 14 137/94 H 94 09/15/18 11:00 95 17 134/79 H 99 09/15/18 10:00 36.8 C 94 18 136/103 H 96 09/15/18 09:00 37.2 C 97 19 124/82 H 95 09/15/18 08:00 37.1 C 85 18 125/75 93 Intake & Output: Intake & Output 09/12/18 09/13/18 09/14/18 09/15/18 23:59 23:59 23:59 23:59 Intake Total 2435.000 7042.000 1600 Output Total 902 3476 2525 Balance 4484.733 7891.000 -925 - Objective General Appearance: positive: No acute distress, Alert, Other (Well-nourished well-developed young white female, who was sleeping but woke easily when I came in the room and greeted her.) Eyes Bilateral: positive: PERRL, EOMI ENT: positive: No signs of dehydration Neck: positive: No JVD. negative: Stiff neck, Carotid bruit Respiratory: positive: Chest non-tender. negative: Wheezes, Rales, Rhonchi Cardiovascular: positive: Regular rate & rhythm. negative: Systolic murmur, Gallop/S4, Friction rub Abdomen: positive: Non-tender, No organomegaly, Nml bowel sounds, No distention. negative: Guarding, Rebound Skin: positive: Warm, Dry, Pallor Extremities: positive: Non-tender, Full ROM, Pedal edema (Minimal.) Neurologic/Psychiatric: positive: Oriented x3, CN's nml (2-12), Other (Weak and shaky when she sits up in bed and stands. At home she requires a wheelchair at times. She requires help in the bath. While there are no focal deficits, she has tremulousness mainly in her legs. She says this is close to her baseline at home.With us, we need a gait belt, and a walker to ambulate her) - Lab Results Fish Bones: 09/15/18 04:53 09/15/18 04:53 Other Labs: Lab Results x24hrs 09/15/18 09/15/18 09/15/18 Range/Units 04:53 04:53 04:53 WBC (4.8-10.8) x10^3/uL RBC (4.20-5.40) 10^6/uL Hgb (12.0-16.0) g/dL Hct (37.0-47.0) % MCV (81.0-99.0) fL MCH (27.0-31.0) pg MCHC (32.0-36.0) g/dL RDW (12.0-15.0) % Plt Count (130-450) 10^3/uL MPV (7.9-10.8) fL Neut # (Auto) (1.5-6.6) 10^3/uL Lymph # (Auto) (1.5-3.5) 10^3/uL [place] # (Auto) (0.0-1.0) 10^3/uL Eos # (Auto) (0.0-0.7) 10^3/uL Baso # (Auto) (0.0-0.1) 10^3/uL Absolute Nucleated RBC x10^3/uL Nucleated RBC % /100WBC PT (9.9-12.6) secs INR (0.8-1.2) VBG pH 7.388 (7.31-7.41) Ionized Calcium 1.11 L YES (1.15-1.33) mmol/L Sodium 138 (135-145) mmol/L Potassium 3.1 L (3.5-5.0) mmol/L Chloride 114 H (101-111) mmol/L Carbon Dioxide 19 L (21-32) mmol/L Anion Gap 5.0 L (6-13) BUN < 5 L (6-20) mg/dL Creatinine 0.6 (0.4-1.0) mg/dL Estimated GFR (MDRD) 112 (>89) Glucose 86 (70-100) mg/dL Calcium 7.5 L 7.7 L (8.5-10.3) mg/dL Phosphorus 1.7 L (2.5-4.6) mg/dL Magnesium 1.5 L (1.7-2.8) mg/dL Total Bilirubin 0.5 (0.2-1.0) mg/dL AST 17 (10-42) IU/L ALT 11 (10-60) IU/L Alkaline Phosphatase 50 (42-121) IU/L Total Protein 4.5 L (6.7-8.2) g/dL Albumin 2.4 L (3.2-5.5) g/dL Globulin 2.1 (2.1-4.2) g/dL Albumin/Globulin Ratio 1.1 (1.0-2.2) Urine Color Urine Clarity (CLEAR) Urine pH (5.0-7.5) PH Ur Specific Temperance (1.002-1.030) Urine Protein (NEGATIVE) mg/dL Urine Glucose (UA) (NEGATIVE) mg/dL Urine Ketones (NEGATIVE) mg/dL Urine Occult Blood (NEGATIVE) Urine Nitrite (NEGATIVE) Urine Bilirubin (NEGATIVE) Urine Urobilinogen (NORMAL) E.U./dL Ur Leukocyte Esterase (NEGATIVE) Urine RBC (0-5) /HPF Urine WBC (0-5) /HPF Ur Squamous Epith Cells (<= Few) Urine Bacteria (None Seen) /HPF Urine Culture Comments Acetaminophen (10-30) ug/mL 09/15/18 09/15/18 09/14/18 Range/Units 04:53 04:53 19:55 WBC 8.3 (4.8-10.8) x10^3/uL RBC 3.48 L (4.20-5.40) 10^6/uL Hgb 10.4 L (12.0-16.0) g/dL Hct 31.5 L (37.0-47.0) % MCV 90.6 (81.0-99.0) fL MCH 29.7 (27.0-31.0) pg MCHC 32.8 (32.0-36.0) g/dL RDW 13.9 (12.0-15.0) % Plt Count 200 (130-450) 10^3/uL MPV 8.0 (7.9-10.8) fL Neut # (Auto) 5.1 (1.5-6.6) 10^3/uL Lymph # (Auto) 2.4 (1.5-3.5) 10^3/uL Bingham # (Auto) 0.6 (0.0-1.0) 10^3/uL Eos # (Auto) 0.1 (0.0-0.7) 10^3/uL Baso # (Auto) 0.0 (0.0-0.1) 10^3/uL Absolute Nucleated RBC 0.01 x10^3/uL Nucleated RBC % 0.1 /100WBC PT 16.8 H (9.9-12.6) secs INR 1.5 H (0.8-1.2) VBG pH (7.31-7.41) Ionized Calcium (1.15-1.33) mmol/L Sodium (135-145) mmol/L Potassium (3.5-5.0) mmol/L Chloride (101-111) mmol/L Carbon Dioxide (21-32) mmol/L Anion Gap (6-13) BUN (6-20) mg/dL Creatinine (0.4-1.0) mg/dL Estimated GFR (MDRD) (>89) Glucose (70-100) mg/dL Calcium (8.5-10.3) mg/dL Phosphorus (2.5-4.6) mg/dL Magnesium (1.7-2.8) mg/dL Total Bilirubin (0.2-1.0) mg/dL AST (10-42) IU/L ALT (10-60) IU/L Alkaline Phosphatase (42-121) IU/L Total Protein (6.7-8.2) g/dL Albumin (3.2-5.5) g/dL Globulin (2.1-4.2) g/dL Albumin/Globulin Ratio (1.0-2.2) Urine Color Urine Clarity (CLEAR) Urine pH (5.0-7.5) PH Ur Specific Temperance (1.002-1.030) Urine Protein (NEGATIVE) mg/dL Urine Glucose (UA) (NEGATIVE) mg/dL Urine Ketones (NEGATIVE) mg/dL Urine Occult Blood (NEGATIVE) Urine Nitrite (NEGATIVE) Urine Bilirubin (NEGATIVE) Urine Urobilinogen (NORMAL) E.U./dL Ur Leukocyte Esterase (NEGATIVE) Urine RBC (0-5) /HPF Urine WBC (0-5) /HPF Ur Squamous Epith Cells (<= Few) Urine Bacteria (None Seen) /HPF Urine Culture Comments Acetaminophen < 10 L (10-30) ug/mL 09/14/18 Range/Units 16:49 WBC (4.8-10.8) x10^3/uL RBC (4.20-5.40) 10^6/uL Hgb (12.0-16.0) g/dL Hct (37.0-47.0) % MCV (81.0-99.0) fL MCH (27.0-31.0) pg MCHC (32.0-36.0) g/dL RDW (12.0-15.0) % Plt Count (130-450) 10^3/uL MPV (7.9-10.8) fL Neut # (Auto) (1.5-6.6) 10^3/uL Lymph # (Auto) (1.5-3.5) 10^3/uL Bingham # (Auto) (0.0-1.0) 10^3/uL Eos # (Auto) (0.0-0.7) 10^3/uL Baso # (Auto) (0.0-0.1) 10^3/uL Absolute Nucleated RBC x10^3/uL Nucleated RBC % /100WBC PT (9.9-12.6) secs INR (0.8-1.2) VBG pH (7.31-7.41) Ionized Calcium (1.15-1.33) mmol/L Sodium (135-145) mmol/L Potassium (3.5-5.0) mmol/L Chloride (101-111) mmol/L Carbon Dioxide (21-32) mmol/L Anion Gap (6-13) BUN (6-20) mg/dL Creatinine (0.4-1.0) mg/dL Estimated GFR (MDRD) (>89) Glucose (70-100) mg/dL Calcium (8.5-10.3) mg/dL Phosphorus (2.5-4.6) mg/dL Magnesium (1.7-2.8) mg/dL Total Bilirubin (0.2-1.0) mg/dL AST (10-42) IU/L ALT (10-60) IU/L Alkaline Phosphatase (42-121) IU/L Total Protein (6.7-8.2) g/dL Albumin (3.2-5.5) g/dL Globulin (2.1-4.2) g/dL Albumin/Globulin Ratio (1.0-2.2) Urine Color LT. YELLOW Urine Clarity SL. CLOUDY (CLEAR) Urine pH 6.0 (5.0-7.5) PH Ur Specific Temperance 1.025 (1.002-1.030) Urine Protein 30 H (NEGATIVE) mg/dL Urine Glucose (UA) NEGATIVE (NEGATIVE) mg/dL Urine Ketones NEGATIVE (NEGATIVE) mg/dL Urine Occult Blood LARGE H (NEGATIVE) Urine Nitrite NEGATIVE (NEGATIVE) Urine Bilirubin NEGATIVE (NEGATIVE) Urine Urobilinogen 0.2 (NORMAL) (NORMAL) E.U./dL Ur Leukocyte Esterase MODERATE H (NEGATIVE) Urine RBC 11-25 H (0-5) /HPF Urine WBC >25 H (0-5) /HPF Ur Squamous Epith Cells FEW Squamous (<= Few) Urine Bacteria Rare (None Seen) /HPF Urine Culture Comments INDICATED Acetaminophen (10-30) ug/mL ABX Reporting Has patient been on IV antibiotics over the past 48 hours?: Yes Assessment/Plan - Problem List (1) Acetaminophen overdose Impression: Qualifiers: Encounter type: initial encounter Injury intent: intentional self-harm Qualified Code(s): T39.1X2A - Poisoning by 4-Aminophenol derivatives, intentional self-harm, initial encounter Assessment/Plan: Managing N-acetylcysteine, based on Acetominophen level, ALT and INR. The acetominophen level initally went up, suggesting delayed absorption, possibly from her Oxybutinin (anticholinergic). Poison Control called twice yesterday: her Acetylcysteine will be stopped when the Acetominophen level is <10 and she has normal ALT and INR <2. Yesterday evening her acetaminophen level dropped less than temp so acetylcysteine was stopped. Liver enzymes remain normal. INR stable at 1.5. Plan: Patient is medically clear. We will now start working on advancing her diet. Getting her up out of bed and seeing how she does physically. When those have been evaluated and she is at baseline, will ask for mental health evaluation. Social work is already been talking to her today. (2) Narcotic overdose Qualifiers: Encounter type: initial encounter Injury intent: intentional self-harm Qualified Code(s): T40.602A - Poisoning by unspecified narcotics, intentional self-harm, initial encounter Assessment/Plan: Continued Narcan Until 18: 30 last night. Now off Narcan. She is awake, alert. A little sleepy but appropriate (3) Suicide attempt Assessment/Plan: The flwjnb-[id number]-qcw informed me that she has had 2 other suicide attempts in [place]. The patient is never home alone because the daughter is home schooled. The patient's brother, usually dispenses her meds.He is in the [employer]. He was at a training course. She must have gotten a hold of her own medications when the refill came through. The (+) Tricyclics in the tox screen may be from her Quietepan intake. She will need a mental health eval by Social Work when medically stable. (4) UTI (urinary tract infection) Qualifiers: Urinary tract infection type: acute cystitis Hematuria presence: without hematuria Qualified Code(s): N30.00 - Acute cystitis without hematuria Assessment/Plan: Continued on iv antibiotic But all cultures have shown contamination.. Added Pyridium for dysuria. Will also restart her itropan and Oxybutinin. She vomited the Pyridium, oxybutynin, and have had to give her an extra dose this morning. Change medications to p.o. antibiotics. (5) Neuropathy Assessment/Plan: The gmzenw-kh-srg informed of this Dx. She is on meds for this. Gabapentin resumed. Again she threw up that pill. Will order a one-time dose for this morning and she will then resume her usual scheduling (6) Spinocerebellar ataxia type III Assessment/Plan: The lfatpe-uh-eiw informed the team that she has Parkinson's disease. Once we started looking into this we found out that her diagnosis is the above. She is on disability for this. (7) Peripheral edema Assessment/Plan: iv saline stopped. Will let third spaced fluids mobilize, if not improved plan is a dose Lasix.Right now she appears to be improving and that intake and output is negative and minimal edema on exam (8) Hypokalemia. Supplement po now. Qualifiers: Qualified Code(s): T39.1X2A - Poisoning by 4-Aminophenol derivatives, intentional self-harm, initial encounter
[2018-09-15] MEDS ORDERED: POTASSIUM CHLORIDE 20 MEQ/15 ML UDC PO SCH (17:00)
[2018-09-15] MEDS: OXYBUTYNIN 5MG TABLET PO SCH (20:17)
[2018-09-15] MEDS: NITROFURANTOIN MACRO 100 MG CAPSULE PO SCH (20:17)
[2018-09-16 05:05] LABS: BASOPHILS % (AUTO) 0.4 %; EOSINOPHILS # (AUTO) 0.2 10^3/uL (0.0-0.7); EOSINOPHILS % (AUTO) 3.4 %; HGB - HEMOGLOBIN 10.7 g/dL (12.0-16.0); LYMPHOCYTES # (AUTO) 2.1 10^3/uL (1.5-3.5); LYMPHOCYTES % (AUTO) 33.7 %; MEAN CORPUSCULAR HEMOGLOBIN 29.1 pg (27.0-31.0); MEAN CORPUSCULAR HGB CONC 32.1 g/dL (32.0-36.0); MEAN CORPUSCULAR VOLUME 90.6 fL (81.0-99.0); MEAN PLATELET VOLUME 8.4 fL (7.9-10.8); MONOCYTES # (AUTO) 0.6 10^3/uL (0.0-1.0); MONOCYTES % (AUTO) 9.9 %; NEUTROPHILS # (AUTO) 3.3 10^3/uL (1.5-6.6); NEUTROPHILS % (AUTO) 52.6 %; PLT - PLATELET COUNT 206 10^3/uL (130-450); RED BLOOD COUNT 3.67 10^6/uL (4.20-5.40); RED CELL DISTRIBUTION WIDTH 13.9 % (12.0-15.0); WHITE BLOOD COUNT 6.3 x10^3/uL (4.8-10.8)
[2018-09-16 05:08] LABS: INR 1.2 (0.8-1.2)
[2018-09-16 05:09] LABS: CALCIUM 7.8 mg/dL (8.5-10.3)
[2018-09-16 05:10] LABS: VBG PH 7.39 (7.31-7.41)
[2018-09-16 05:26] LABS: ALBUMIN 2.7 g/dL (3.2-5.5); ALBUMIN/GLOBULIN RATIO 1.4 (1.0-2.2); ALKALINE PHOSPHATASE 58 IU/L (42-121); ALT ALANINE AMINOTRANSFERASE 13 IU/L (10-60); AST ASPARTATE AMINOTRANSFERASE 25 IU/L (10-42); BILIRUBIN,TOTAL 0.6 mg/dL (0.2-1.0); BUN - BLOOD UREA NITROGEN < 5 mg/dL (6-20); CALCIUM 7.9 mg/dL (8.5-10.3); CARBON DIOXIDE - CO2 23 mmol/L (21-32); CHLORIDE 111 mmol/L (101-111); CREATININE 0.6 mg/dL (0.4-1.0); GFR - MDRD 112 (>89); GLUCOSE 88 mg/dL (70-100); MAGNESIUM 1.6 mg/dL (1.7-2.8); PHOSPHORUS 2.5 mg/dL (2.5-4.6); SODIUM 137 mmol/L (135-145); TOTAL PROTEIN 4.7 g/dL (6.7-8.2)
[2018-09-16] MEDS: PHENAZOPYRIDINE 100 MG TABLET PO SCH ×2 (06:38→14:03)
[2018-09-16] MEDS: GABAPENTIN 300 MG CAPSULE PO SCH ×2 (06:38→14:05)
[2018-09-16] MEDS ORDERED: MAGNESIUM SULFATE 2 GRAM 2 GM/50 ML BAG IV ONE (07:57)
[2018-09-16] MEDS ORDERED: POTASSIUM CHLORIDE 20 MEQ TABLET PO SCH (08:00)
[2018-09-16] MEDS: NITROFURANTOIN MACRO 100 MG CAPSULE PO SCH (08:18)
[2018-09-16] MEDS: SODIUM CHLORIDE FLUSH 0.9% 10 ML SYRINGE IVP SCH ×2 (08:18→09:57)
[2018-09-16] MEDS: PANTOPRAZOLE 40 MG VIAL IVP SCH (08:18)
[2018-09-16] MEDS: OXYBUTYNIN 5MG TABLET PO SCH (09:57)
--- NOTE | 2018-09-16 15:06 | Discharge Plan ---
Discharge Plan Disposition: [facility]Unit DC/Xfer Condition: Stable Prescriptions: Nitrofurantoin [Macrobid] 100 mg PO BID #4 capsule Potassium Chloride [Klor-Con] 20 meq PO DAILY #7 packet Diet: Regular Activity Restrictions: Activity as Tolerated Shower Restrictions: No Driving Restrictions: No Assistance Devices: Wheelchair (Uses at home), Walker (Uses at home, home walker being brought in) Weight Bearing: Full Weight No Smoking: If you smoke, Please STOP! Call for help. Follow-up with: KAMLESH JOHNSON [Primary Care Provider] -
[2018-09-16] MEDS ORDERED: CALCIUM GLUCONATE 1,000 MG in SODIUM CHLORIDE 0.9% 50 ML IV ONE (16:00)
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
[2018-09-16 18:55] VITALS: BP 112/56
== END 2018-09-16 18:45 | DRG 918 ==
LOC: ED 15:54 → ICU 17:11
PROVIDERS: ADMIT Internal Medicine; ATTEND Internal Medicine
DX: T39.1X2A Poisoning by 4-Aminophenol derivatives, intentional self-harm, initial encounter (principal); N39.0 Urinary tract infection, site not specified; F33.9 Major depressive disorder, recurrent, unspecified; G11.1 Early-onset cerebellar ataxia; T40.2X2A Poisoning by other opioids, intentional self-harm, initial encounter; Y92.019 Unspecified place in single-family (private) house as the place of occurrence of the external cause; E87.6 Hypokalemia; D64.9 Anemia, unspecified; G20 Parkinson's disease; G62.9 Polyneuropathy, unspecified; R60.9 Edema, unspecified
CPT/HCPCS: 36415; 51702; 80053; 80306; 80307; 80320; 80329; 81001; 81003; 81025; 82310; 82330; 83690; 83735; 84100; 84443; 84460; 85025; 85610; 87086; 87150; 93005; 96365; 96375; 99284; 99285; 99291